=== PATIENT | female | born 1985 | race Caucasian/White ===

== ENCOUNTER 2019-09-18 08:00 | Day surgery (SDC) | payer OTHER ==
[~2019-09-18 08:00] MED LIST: ARNUITY ELLIP200 MCG; CLARITIN5 MG; PROAIR RESPICL90 MCG; PROMETH-CODEIN 65 ML PO; ZITHROMAX500 MG PO
== END 2019-09-18 16:00 | disposition home or self-care (01) ==
LOC: CIR.AMB 08:00
PROVIDERS: ATTEND Obstetrics & Gynecology
DX: O02.1 Missed abortion (principal)

== ENCOUNTER 2020-12-08 08:37 | Outpatient (CLI) | payer OTHER | END 2020-12-08 09:07 | disposition home or self-care (01) | LOC: SONOGRAMA 08:37 → MAMO-SONO 09:30 | PROVIDERS: ATTEND Obstetrics & Gynecology | DX: N60.02 Solitary cyst of left breast (principal); N60.01 Solitary cyst of right breast ==

== ENCOUNTER → 2020-12-16 | Outpatient (CLI) | payer OTHER | END | disposition home or self-care (01) | LOC: RX STUDY 08:44 | PROVIDERS: ATTEND Obstetrics & Gynecology | DX: N70.01 Acute salpingitis (principal) ==

== ENCOUNTER 2021-03-01 09:54 | Outpatient (CLI) | payer OTHER | END 2021-03-01 10:54 | disposition home or self-care (01) | LOC: PRENATAL 09:54 | PROVIDERS: ATTEND Obstetrics & Gynecology Maternal & Fetal Medicine | DX: Z36.89 Encounter for other specified antenatal screening (principal); O36.80X1 Pregnancy with inconclusive fetal viability, fetus 1; O09.521 Supervision of elderly multigravida, first trimester; Z3A.12 12 weeks gestation of pregnancy ==

== ENCOUNTER 2021-03-17 10:04 | Emergency (ER) | payer OTHER ==
[~2021-03-17] VITALS: Ht 152.4 cm; Wt 65.8 kg
[2021-03-17] MEDS ORDERED: PEPCID20 MG PO (10:33)
[2021-03-17] MEDS ORDERED: ZOFRAN8 MG PO (10:34)
[2021-03-17] MEDS ORDERED: PRENATAL CAPLE1 EAC1 (10:35)
[2021-03-17] MEDS ORDERED: ZITHROMAX500 MG PO (13:29)
[2021-03-17] MEDS ORDERED: ZITHROMAX200 MG PO (13:37)
== END 2021-03-17 13:43 | disposition home or self-care (01) ==
LOC: ER 10:04
DX: B34.9 Viral infection, unspecified (principal); Z3A.13 13 weeks gestation of pregnancy; Z20.822 Contact with and (suspected) exposure to COVID-19

== ENCOUNTER 2021-04-30 07:55 | Outpatient (CLI) | payer OTHER ==
[~2021-04-30 07:55] MED LIST changes: +PEPCID20 MG PO; +PRENATAL CAPLE1 EAC1; +ZITHROMAX200 MG PO; +ZOFRAN8 MG PO
== END 2021-04-30 09:00 | disposition home or self-care (01) ==
LOC: PRENATAL 07:55
PROVIDERS: ATTEND Obstetrics & Gynecology Maternal & Fetal Medicine
DX: O35.0XX0 Maternal care for (suspected) central nervous system malformation in fetus, not applicable or unspecified (principal); O09.529 Supervision of elderly multigravida, unspecified trimester; O35.3XX0 Maternal care for (suspected) damage to fetus from viral disease in mother, not applicable or unspecified

== ENCOUNTER 2021-07-19 09:02 | Outpatient (CLI) | payer OTHER | END 2021-07-19 10:15 | disposition home or self-care (01) | LOC: PRENATAL 09:02 | PROVIDERS: ATTEND Obstetrics & Gynecology Maternal & Fetal Medicine | DX: O35.0XX0 Maternal care for (suspected) central nervous system malformation in fetus, not applicable or unspecified (principal); O09.529 Supervision of elderly multigravida, unspecified trimester; O36.8199 Decreased fetal movements, unspecified trimester, other fetus; O26.849 Uterine size-date discrepancy, unspecified trimester; Z3A.30 30 weeks gestation of pregnancy ==

== ENCOUNTER 2021-08-12 17:01 | Outpatient (CLI) | payer OTHER ==
[2021-08-14] MEDS ORDERED: PEPCID AC20 MG (22:21)
[2021-08-14] MEDS ORDERED: PRENATAL TABLE1 EAC1 (22:21)
[2021-08-14] MEDS ORDERED: MYLANTA TONIGH355 ML (22:22)
== END 2021-08-14 07:35 | disposition home or self-care (01) ==
LOC: OBS/DEL 17:01 → LDR 17:10 → OBS/DEL 17:19
PROVIDERS: ATTEND Obstetrics & Gynecology
DX: O26.849 Uterine size-date discrepancy, unspecified trimester (principal); O36.8199 Decreased fetal movements, unspecified trimester, other fetus

== ENCOUNTER 2021-08-14 21:46 | Outpatient (CLI) | payer OTHER ==
[~2021-08-14] VITALS: Ht 160 cm; Wt 72.6 kg
[2021-08-14] MEDS ORDERED: PRENATAL TABLE1 EAC1 (22:21)
[2021-08-14] MEDS ORDERED: PEPCID AC20 MG (22:21)
[2021-08-14] MEDS ORDERED: MYLANTA TONIGH355 ML (22:22)
== END 2021-08-15 13:13 | disposition home or self-care (01) ==
LOC: OBS/DEL 21:46
PROVIDERS: ATTEND Obstetrics & Gynecology
DX: O26.893 Other specified pregnancy related conditions, third trimester (principal); Z3A.35 35 weeks gestation of pregnancy

== ENCOUNTER 2021-09-07 07:51 | Inpatient (IN) | payer OTHER ==
[~2021-09-07] VITALS: Ht 160 cm; Wt 2.7 kg
[~2021-09-07 07:51] MED LIST changes: +MYLANTA TONIGH355 ML; +PEPCID AC20 MG; +PRENATAL TABLE1 EAC1
[2021-09-07] MEDS ORDERED: CLARITIN10 M1 (10:17)
== END 2021-09-10 14:37 | disposition home or self-care (01) | DRG 788 ==
LOC: OB/GYN 07:51 → LDR 07:51 → OB/GYN 21:43
PROVIDERS: ADMIT Obstetrics & Gynecology; ATTEND Obstetrics & Gynecology
PROC: 10D00Z1 Extraction of Products of Conception, Low, Open Approach (ICD-10-PCS; principal; 2021-09-07 19:30)
DX: O82 Encounter for cesarean delivery without indication (principal); Z3A.39 39 weeks gestation of pregnancy; Z37.0 Single live birth; F43.0 Acute stress reaction; F41.1 Generalized anxiety disorder

== ENCOUNTER 2025-01-17 09:39 | Emergency (ER) | payer OTHER ==
[~2025-01-17] VITALS: Ht 160 cm; Wt 59.0 kg
[~2025-01-17 09:39] MED LIST changes: +CLARITIN10 M1
[2025-01-17] MEDS ORDERED: 0.9 % SODIUM CHLORIDE 1,000 ML IV ONE (12:45)
[2025-01-17] MEDS ORDERED: ONDANSETRON HCL 2 MG/ML VIAL IV ONE (12:45)
[2025-01-17] MEDS ORDERED: FAMOTIDINE/PF 20 MG/2 ML VIAL IV ONE (12:45)
[2025-01-17] MEDS ORDERED: FAMOTIDINE/PF 20 MG/2 ML VIAL ONE (12:46)
[2025-01-17] MEDS ORDERED: ONDANSETRON HCL 2 MG/ML VIAL ONE (12:46)
[2025-01-17 13:12] LABS: BASO % 1.2 % (0.1-1.2); EOS # 0.31 (0.04-0.54); EOS % 4.5 % (0.7-7.0); LYMPH # 2.57 (1.18-3.74); LYMPH % 37.2 % (19.3-53.1); MEAN PLATELET VOLUME 9.00 fl (9.4-12.4); MONO # 0.39 (0.24-0.82); MONO % 5.7 % (4.7-12.5); NEUT # 3.54 (1.56-6.13); NEUT % 51.3 % (34.0-71.1); RED CELL DISTRIBUTION WIDTH 13.9 % (11.6-14.4)
[2025-01-17 13:54] LABS: ALT/SGPT 20.0 U/L (12-78); AST/SGOT 11.0 U/L (15-37); BILIRUBIN TOTAL 0.44 mg/dL (0.3-1.2); BUN CREA RATIO 15.0 (7.0-25.0); CREATININE SERUM 0.66 mg/dL (0.55-1.02); GFR 99.19; GLOBULINA 4.4 G/DL (2.4-3.5); GLUCOSE FASTING 80.0 mg/dL (65-100); OSMOLALITY SERUM 279.0 MOSM/KG (275-295)
[2025-01-17 14:48] LABS: COVID-19 AG NEGATIVE (NEGATIVE)
[2025-01-17 15:33] LABS: URINE APPEARANCE Clear; URINE BILIRRUBIN Negative (NEGATIVE); URINE BLOOD Negative; URINE COLOR Yellow; URINE GLUCOSE Negative (NEGATIVE); URINE KETONE Negative (NEGATIVE); URINE LEUKOCYTE Negative; URINE NITRATE Negative; URINE PROTEIN Negative (NEGATIVE); URINE UROBILINOGEN 0.2 E.U./dl
[2025-01-17 15:38] LABS: URINE BACTERIA 89.9 uL (0.0-1933); URINE EPITHELIAL CELLS 6.1 uL (0.0-38.8); URINE RBC 4.9 uL (0.0-20.8); URINE WBC 5.6 uL (0.0-23.2)
[2025-01-17 15:54] LABS: URINE CAST 0.14 uL (0.0-1.40)
[2025-01-17] MEDS ORDERED: ZOFRAN8 MG PO (16:45)
[2025-01-17] MEDS ORDERED: PEPCID AC20 MG PO (16:45)
== END 2025-01-17 17:39 | disposition home or self-care (01) ==
LOC: ER 09:39
DX: K52.89 Other specified noninfective gastroenteritis and colitis (principal); Z20.822 Contact with and (suspected) exposure to COVID-19